=== PATIENT | male | born 1960 | race Caucasian/White ===

== ENCOUNTER → 2019-02-27 | Outpatient (CLI) | payer OTHER | LOC: M.LAB 04:28 | DX: E87.6 Hypokalemia (principal) ==

== ENCOUNTER 2019-09-08 12:13 | Emergency (ER) | payer OTHER ==
[~2019-09-08] VITALS: Ht 177.8 cm; Wt 108.9 kg
[2019-09-08] MEDS ORDERED: LEVO-T25 MCG PO (12:22)
[2019-09-08] MEDS ORDERED: SIMVASTATIN80 MG PO (12:22)
[2019-09-08] MEDS ORDERED: BLOOD PRESSURE MED (12:22)
[2019-09-08] MEDS ORDERED: MEDROLDOSEPACK PO (13:54)
[2019-09-08] MEDS ORDERED: PEPCID40 MG PO (13:54)
[2019-09-08] MEDS ORDERED: EPIPEN0.3 MG/0.1 IM (13:54)
[2019-09-08 14:14] VITALS: BP 110/82
--- NOTE | 2019-09-08 15:56 | EKG ---
[place] [address] ELECTROCARDIOGRAM REPORT Name: PAOLO HARRIS Room: 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1960 Requested By: Danica Wright Order Number: [id number] Jody MD: Jason Alvarez Measurements Intervals [place] Rate: 100 P: 24 TX: 155 QRS: -54 QRSD: 94 T: 25 QT: 341 QTc: 440 Interpretive Statements Sinus tachycardia Probable left atrial enlargement Inferior infarct, old Consider anterior infarct No previous ECG available for comparison Electronically Signed On 09-08-2019 15:54:46 CDT by Jason Alvarez [email or web address] <ELECTRONICALLY SIGNED> By: Jason Alvarez MD, [facility] 09/08/19 1554 1222 1222 Jason Alvarez MD, [facility] /EPI
== END 2019-09-08 14:15 | disposition home or self-care (01) ==
LOC: M.ERS 12:13
DX: T63.441A Toxic effect of venom of bees, accidental (unintentional), initial encounter (principal); Z91.030 Bee allergy status; Y92.89 Other specified places as the place of occurrence of the external cause